=== PATIENT | female | born 1995 | race Caucasian/White ===

== ENCOUNTER 2022-06-08 15:43 | Outpatient (CLI) | payer BC, SELFPAY | END 2022-06-08 15:44 | disposition home or self-care (01) | LOC: NFLDREF 06-12 10:29 | PROVIDERS: PCP Physician Assistant Medical; Referring Provider Physician Assistant Medical; Visit Provider Physician Assistant Medical | DX: Z01.419 Encounter for gynecological examination (general) (routine) without abnormal findings (principal); Z13.6 Encounter for screening for cardiovascular disorders; Z13.29 Encounter for screening for other suspected endocrine disorder | CPT/HCPCS: 80053; 80061; 84443 ==

== ENCOUNTER 2023-10-04 11:46 | Emergency (ER) | payer BC, SELFPAY ==
[2023-10-04 11:53] VITALS: BP 145/93; PULSE 94; RESP 16; TEMP 37.1; O2SAT 99; BMI 27.4
--- NOTE | 2023-10-04 12:18 | CRLHL7_ITS ---
For Patients: As a result of the Cures Act, medical imaging exams and procedure reports are released immediately into your electronic medical record. You may view this report before your referring provider. If you have questions, please contact your health care provider. Indication: .INJURY Technique: Three views right knee. Comparison: None. Findings/Impression: No acute displaced fracture or malalignment. No soft tissue swelling. Joint spaces are maintained. Bony mineralization is age appropriate. Dictated by Brian Bunn MD @ 10/04/2023 12:44:58 PM (Electronically Signed)
--- NOTE | 2023-10-04 12:18 | ED.LOWEXIN ---
HPI - Extremity Injury (Lower) General Chief Complaint: Extremity Pain/Injury, Lower Stated Complaint: right knee injury Time Seen by Provider: 10/04/23 11:56 History of Present Illness HPI Narrative: This 28-year-old female comes in with an injury to her right knee. A couple days ago she attempted to make a little hop over a puddle by a launching with her left leg and landing on her right leg. When she landed she felt a pop and since then has had worsening pain. Since last night she has not been able to bear weight. She has too much pain also to fully extend her right leg. Related Data Previous Rx's ?Medication ?Instructions ?Recorded citalopram 10 mg tablet (Celexa) 10 mg PO QDAY #30 tabs 09/30/23 hydrocodone 5 mg-acetaminophen 325 1 tab PO Q4-6H PRN pain #20 tabs 10/04/23 mg tablet Allergies Allergy/AdvReac Type Severity Reaction Status Date / Time No Known Allergies Allergy Unknown Verified 10/04/23 11:52 Review of Systems Status of ROS: Reports: 10 or more systems reviewed and unremarkable except as noted in History and below Narrative: Constitutional: No fevers, no weight gain or loss. Eyes: No discharge. No vision changes. HENT: No congestion, no sore throat, no ear pain. Cardiovascular: No chest pain, no palpitations. Respiratory: No shortness of breath, no wheezes, no cough. Gastrointestinal: No abdominal pain, no vomiting, no diarrhea. Genitourinary: No dysuria, no hematuria. Musculoskeletal: Right leg injury as described above. Skin: No rashes, no pruritis. Neurological: No dizziness, weakness, sensory change, speech change. Endo/Heme/Allergies: No bruising or bleeding. No polydipsia. Pysch: no suicidality, no anxiety, no insomnia. All other systems reviewed and are negative. [facility] Medical History (Updated 10/04/23 @ 15:52 by Elder Cm MD) Palpitation ?R00.2 - Palpitations (ICD-10) Acute pelvic inflammatory disease (02/2016) ?N73.0 - Acute parametritis and pelvic cellulitis (ICD-10) Family History (Updated 06/05/22 @ 13:56 by Sarina Betancourt) Father Diabetes Social History (Updated 06/05/22 @ 13:56 by Sarina Betancourt) Narrative: Does not drink alcohol Does not use illicit drugs Smoker Smoking Status: Current every day smoker How often do you have a drink containing alcohol: 2-3 times a week AUDIT-C Alcohol total score: 3 Non-prescribed substance use: denies use Little interest or pleasure in doing things: more than half the days Feeling down, depressed, or hopeless: more than half the days Exam Narrative: Exam Narrative: Constitutional: Well-developed, well-nourished, no acute distress. HEENT: Normocephalic, atraumatic. Neck: Normal range of motion. Nontender. Supple. Heart: Regular. No murmurs. Normal rate. Intact distal pulses. Lungs: Clear to auscultation. No chest discomfort. No wheezes, rhonchi, or rales. Abdomen: Normal bowel sounds. Nontender. No rebound tenderness. Genitalia: Deferred. Back: No midline tenderness. Normal range of motion. Extremities: This patient has distinct pain with any kind of movement of her right knee such that I was not able to do a good examination of ligaments. She does appear to have a small effusion. She is unable to fully straighten her leg due to pain. Skin: Intact. No rash. Warm. No erythema or pallor. Neurologic: No altered sensation. No weakness. Alert and oriented. Psychiatric: No suicidality. No anxiety or depression. No insomnia. Nursing notes and vitals signs are reviewed. Const: Vital Signs, click to edit/add: Vital Signs - 24 hr 10/04/23 11:53 Temperature 98.7 F Pulse Rate [Pulse Oximeter] 94 Respiratory Rate 16 Blood Pressure [Ri ght Upper Arm] 145/93 H Pulse Oximetry 99 Course Vital Signs Vital signs: Initial Vital Signs Temperature 98.7 F 10/04/23 11:53 Temperature Source Temporal Artery Scan 10/04/23 11:53 Pulse Rate 94 10/04/23 11:53 Respiratory Rate 16 10/04/23 11:53 Blood Pressure 145/93 H 10/04/23 11:53 Blood Pressure Mean 110 H 10/04/23 11:53 Blood Pressure Position Sitting 10/04/23 11:53 Pulse Oximetry 99 10/04/23 11:53 Vital Signs Temperature 98.7 F 10/04/23 11:53 Pulse Rate 94 10/04/23 11:53 Respiratory Rate 16 10/04/23 11:53 Blood Pressure 145/93 H 10/04/23 11:53 Pulse Oximetry 99 10/04/23 11:53 Temperature 98.7 F 10/04/23 11:53 Pulse Rate 94 10/04/23 11:53 Respiratory Rate 16 10/04/23 11:53 Blood Pressure 145/93 H 10/04/23 11:53 Pulse Oximetry 99 10/04/23 11:53 Medications Administered Medications: Discontinued Medications Generic Name Dose Route Start Last Admin Trade Name Freq PRN Reason Stop Dose Admin Hydrocodone Bitart/Acetaminophen 2 tab 10/04/23 14:26 10/04/23 14:40 Hydrocodone-Acetamin 5-325 Mg 1 Tab PO 10/04/23 14:27 2 tab ONCE ONE Administration MDM - Extremity Injury (Lower) MDM Narrative Medical decision making narrative: This patient comes in with pain in injury to her right knee as described above. X-ray imaging shows no acute findings. The patient is unable to ambulate due to pain and also is not able to fully extend her right knee. I did contact the orthopedic physician's public aid eligibility assistant consumer credit counselor who will make arrangements for a follow-up appointment in clinic in the next day or 2. I was able to arrange MRI imaging of her knee today and results for this test are pending. The patient received crutches and prescription for [place]. Imaging Data XR R Knee: Radiologist's impression: No acute displaced fracture or malalignment. No soft tissue swelling. Joint spaces are maintained. Bony mineralization is age appropriate. Discharge Plan Discharge Clinical Impression: Injury of knee Patient Disposition: Home w/ Parent or Adult Condition: Unchanged Additional Instructions: Use crutches as needed along with pain medicine as prescribed. Follow-up with orthopedic clinic. You should receive phone call as to when and where this can occur. Or you made I will [phone]. Prescriptions: New hydrocodone-acetaminophen 5-325 mg tablet 1 tab PO Q4-6H PRN (Reason: pain) Qty: 20 0RF No Action citalopram [Celexa] 10 mg tablet 10 mg PO QDAY Qty: 30 12RF Rx Instructions: disp cap if cheaper Follow Up/Referrals: Kady Bosch MD [Primary Care Provider] - Stand Alone [facility]: [facility] Info Instructions
--- NOTE | 2023-10-04 14:02 | CRLHL7_ITS ---
For Patients: As a result of the Century Cures Act, medical imaging exams and procedure reports are released immediately into your electronic medical record. You may view this report before your referring provider. If you have questions, please contact your health care provider. INDICATION: Knee pain after fall. COMPARISON: 04 October 2023. TECHNIQUE: Axial T1 and PD fat-sat, sagittal PD and T2 fat-sat and coronal PD and STIR right knee. FINDINGS: Medial compartment: Meniscus: Bucket-handle tear with about half of the meniscus displaced over the medial tibial eminence in the intercondylar notch. Internally extruded flap tear from the nondisplaced posterior horn and posterior body (image 21 series 8). Articular cartilage: Uniform and well maintained signal and thickness. MCL: Intact. Cruciate ligaments: ACL: Somewhat edematous indistinct proximal ligament which is mildly attenuated suggesting partial tearing. PCL: Intact. Lateral compartment: Meniscus: Intact. Articular cartilage: Uniform. Lateral collateral complex: Intact. Patellofemoral compartment: Uniform and well-maintained articular cartilage thickness and signal. Extensor mechanism: Distal quadriceps tendon and patellar tendon are intact with anatomic patellar alignment. Bones and soft tissues: Moderate size joint effusion. No intra-articular body or significant synovitis. No fracture or bone lesion. Posterior periarticular soft tissues are normal. IMPRESSION: 1. Complex bucket-handle medial meniscal tear. 2. Possibly chronic partial tear proximal ACL. 3. Moderate-sized bland appearing knee joint effusion. Dictated by Josiah Ye MD @ 10/04/2023 4:30:59 PM (Electronically Signed)
[2023-10-04] MEDS: HYDROCODONE-ACETAMIN 5-325 MG 1 TAB 2 TAB PO (14:40)
== END 2023-10-04 16:20 | disposition home or self-care (01) ==
PROVIDERS: Emergency Provider Emergency Medicine Emergency Medical Services; PCP Family Medicine
DX: M25.561 Pain in right knee (principal); X50.1XXA Overexertion from prolonged static or awkward postures, initial encounter
CPT/HCPCS: 73562; 73721; 99284; A9270

== ENCOUNTER 2023-10-15 06:05 | Day surgery (SDC) | payer BC, SELFPAY ==
[2023-10-15] VITALS (17 sets, daily range): BP systolic 101–166; BP diastolic 53–134; PULSE 56–110; RESP 16–21; TEMP 36.3–37.3; O2SAT 92–100; BMI 30.9
--- OUTSIDE RECORDS SUMMARY | 2023-10-15 06:07 | XMS_ITS | Encounter Summary ---
Author Organization [place] Address [address] [place] [id number] Care Team Providers Care Pediatric Speech Therapist Name Role Phone No Ref-Primary, Physician Primary Care Provider Louis Shin MD Unavailable [phone] Reason for Referral * Other (Routine) - Closed Specialty Diagnoses / Procedures Referred By Contac t Referred To Contact Diagnoses Supervision of other normal , antepartum Ri Third Grade Teacher [address] [place] [address] MATER[facility]- [facility] [address], [address] [place] [address] Referral ID Status Reason Start Date Expiration Date Visits Re quested Visits Authorized [id number] Closed 09/07/2019 09/06/2020 1 1 Question Answer [facility] WILLIAM 01/24/2020 Ultrasound Comprehensive US (>than 18 weeks GA) US PROC NONE [facility] Issue OTHER (enter details in Comments) - echogenic intracardiac focus in the left ventricle. LVOT and RVOT inadequately visualized fax [phone] Comments There is no height or weight on file to calculate BMI. >> Patient may proceed with recommendations for further testing as directed by the Maternal Medicine Specialist >> >> If requesting Echo: MFM will determine appropriate location for exam due to indication. >> If requesting Lung Maturity Amnio: If results indicate lung maturity, induction or C/S is recommended within 36 hours. Please schedule accordingly. Please be aware that coverage of these services is subject to the terms and limitations of your health insurance plan. Call member services at your health plan with any benefit or coverage questions. Please bring the following to your appointment: >> Any x-rays, CTs or MRIs which have been performed. Contact the facility where they were done to arrange for warp picker prior to your scheduled appointment. Any new CT, MRI or other procedures ordered by your specialist must be performed at a [facility] or coordinated by your clinic's referral office. >> List of current medications >> This referral request >> Any documents/labs given to you for this referral Encounter Details Date Type Department Care Team (Late st Contact Info) Description 09/07/2019 Orders Only [facility] [address] [place] [id number] Fatoumata Layton, RN Supervision of other normal , antepartum (Primary Dx) Social History Tobacco Use Types Packs/Day Years Used Date Smoking Tobacco: Former Cigarettes Q uit: 12/13/2012 Smokeless Tobacco: Never Alcohol Use Standard Drinks/Week Comments No 0 (1 standard drink = 0.6 oz pur e alcohol) Comments Yes Sex and Gender Information Value Date Recorded Sex Assigned at Not on file Gender Identity Not on file Sexual Orientation Not on file COVID-19 Exposure Response Date Recorded In the last month, have you been in contact with someone who was confirmed or suspected to have Coronavirus / COVID-19? No / Unsure 09/07/2019 9:23 AM CDT documented as of this encounter Plan of Treatment Scheduled Referrals Name Type Priority Associated Diagnoses Orde r Schedule MAT MED CTR REFERRAL- Referral Routine Supervision of other normal , antepartum Ordered: 09/07/2019 documented as of this encounter Visit Diagnoses Diagnosis Supervision of other normal , antepartum- Primary documented in this encounter Additional Health Concerns Assessment Noted Time PHQ-9 Depression Total Score: 9 11/17/19 18 7:16 AM CDT documented as of this encounter Care Teams Pediatric Speech Therapist Relationship Specialty Start Date End Date No Ref-Primary, Physician PCP - General 03/19/17 Louis Shin MD [address] [place] [address] Assigned OBGYN Provider 01/26/20 2 documented as of this encounter
--- OUTSIDE RECORDS SUMMARY | 2023-10-15 06:07 | XMS_ITS | Encounter Summary ---
Author Organization [facility] Address [address] [place] [address]. [place] [address] Care Team Providers Care Social Media Specialist Name Role Phone Fauzia Cormier MD Primary Care Provider [phone] Gemma Cisneros Primary Care Provider [phone] No Ref-Primary, Physician Primary Care Provider Louis Shin MD Unavailable + [phone] Encounter Details Date Type Department Care Team (Late st Contact Info) Description 08/15/2013 Telephone [facility] [address] [address] Gisele Wheeler MA [address] [address] Social History Tobacco Use Types Packs/Day Years Used Date Smoking Tobacco: Former Cigarettes Q uit: 12/13/2012 Smokeless Tobacco: Never Alcohol Use Standard Drinks/Week Comments Yes 0 (1 standard drink = 0.6 oz pur e alcohol) 7 months ago Sex and Gender Information Value Date Recorded Sex Assigned at Not on file Gender Identity Not on file Sexual Orientation Not on file documented as of this encounter Plan of Treatment Not on file documented as of this encounter Visit Diagnoses Not on filedocumented in this encounter Care Teams Social Media Specialist Relationship Specialty Start Date End Date Fauzia Cormier MD PCP - General Family Practice 12/02/12 02/18/16 [facility] [address] [facility] [place] [address] PCP - General Physician [employer] 02/19/16 03/18/17 No Ref-Primary, Physician PCP - General 03/19/17 [facility] [address] [facility] [address] Assigned OBGYN Provider 01/26/20 4 2 documented as of this encounter
--- OUTSIDE RECORDS SUMMARY | 2023-10-15 06:07 | XMS_ITS | Encounter Summary ---
Author Organization [place] Address [address] [place] [address]. [place] [address] Care Team Providers Care Retort Loader Name Role Phone Fauzia Cormier MD Primary Care Provider [phone] Gemma Cisneros Primary Care Provider [phone] No Ref-Primary, Physician Primary Care Provider Louis Shin MD Unavailable + [phone] Encounter Details Date Type Department Care Team (Late st Contact Info) Description 08/17/2013 Telephone [facility] [address] [address] Gisele Wheeler MA [address] [address] Social History Tobacco Use Types Packs/Day Years [...] on filedocumented in this encounter Care Teams Retort Loader Relationship Specialty Start Date End Date Fauzia Cormier MD PCP - General Family Practice 12/02/12 02/18/16 AmeliaJuly [facility] [address] [facility] [place] [address] PCP - General Physician Regional Tele[employer] Specialist 02/19/16 03/18/17 No Ref-Primary, Physician PCP - General 03/19/17 [facility] [address] [facility] [address] Assigned OBGYN Provider 01/26/20 4 2 documented as of this encounter
--- OUTSIDE RECORDS SUMMARY | 2023-10-15 06:07 | XMS_ITS | Referral Summary ---
Author Organization [place] Address [address] [place] [address] Care Team Providers Care Audit Partner Name Role Phone No Ref-Primary, Physician Primary Care Provider Allergies No known active allergies Medications Medication Sig Dispensed Refills Start Date End Date Status Vit-Fe Fumarate-FA ( MULTIVITAMIN PLUS IRON) 27-0.8 MG TABS per tablet Take 1 tablet by mouth daily 100 tablet 3 07/29/2017 Active FLUoxetine (PROZAC) 40 MG capsule Take 40 mg by mouth daily Active acetaminophen (TYLENOL) 325 MG tabletIndications:Vag inal delivery Take 2 tablets (650 mg) by mouth every 4 hours as needed for mild pain or fever (greater than or equal to 38?? C /100.4?? F (oral) or 38.5?? C/ 101.4?? F (core).) 01/17/2020 Active ibuprofen (ADVIL/MOTRIN) 800 MG tabletIndications:Vag inal delivery Take 1 tablet (800 mg) by mouth every 6 hours as needed for other (cramping) 01/17/2020 Active hydrOXYzine (ATARAX) 25 MG tablet Take 1-2 tablets (25-50 mg) by mouth every 6 hours as needed for other (muscle spasm) 30 tablet 12/26/2021 Active Active Problems Problem Noted Date Diagnosed Date Vaginal delivery 01/16/2020 Encounter for triage in patient 020 Indication for care in labor or delivery 018 Indication for care or intervention in labor or delivery 09/30/2017 care, subsequent 09/01/2017 care, first 08/09/2017 Substance abuse 08/09/2017 Mental and behavioral problem 12/02/2012 Overview: Diagnosis updated by automated process. Provider to review and confirm. Mental health problem 10/25/2012 Major depressive disorder, single episode, moder ate 03/16/2011 Immunizations Name Administration Dates Next Due DTAP (<7y) 11/14/2002, 9,1997,1997,1997 Flu, Unspecified 05/20/2006 HIB, Unspecified 07/04/1998, 8,1997,1997 HPV Quadrivalent 11/29/2009,11/24/2006, 7 HepB, Unspecified 01/08/1998,1997,05/25/18 98 Influenza (H1N1) 03/01/2009 Influenza (IIV3) PF 01/31/2009,03/12/2008 Influenza Vaccine >6 months,quad, PF 02/01/2015 MMR 11/29/2009,11/14/2002,07/04/1998 Meningococcal ACWY (Menveo??) 11/12/2016 Polio, Unspecified 07/04/1998,1997, 998 Poliovirus, inactivated (IPV) 11/14/2002 TDAP Vaccine (Adacel) 11/13/2019,08/23/2017,11/04 Td (Adult), Adsorbed 11/12/2016 Varicella 11/29/2009,07/04/1998 Social History Tobacco Use Types Packs/Day Years Used Date Smoking Tobacco: Former Cigarettes Q uit: 12/13/2012 Smokeless Tobacco: Never Tobacco Cessation:Counseling Given: No Alcohol Use Standard Drinks/Week Comments No 0 (1 standard drink = 0.6 oz pur e alcohol) Admire Depression Scale Answer Date Recorded Admire Depression Score 2 01/17/2020 Last EPDS Self Harm Result Not on file 01/16 Adolescent Education Answer Date Record ed Getting School Help Needed Not on file 01/09 Sex and Gender Information Value Date Recorded Sex Assigned at Not on file Gender Identity Not on file Sexual Orientation Not on file Last Filed Vital Signs Vital Sign Reading Time Taken Comments Blood Pressure 131/94 12/26/2021 10:05 AM CDT Pulse 77 12/26/2021 10:05 AM CDT Temperature 35.9 ??C (96.7 ??F) 12/26/2021 10:05 AM C DT Respiratory Rate 16 12/26/2021 10:05 AM CDT Oxygen Saturation 99% 12/26/2021 10:05 AM CDT Inhaled Oxygen Concentration - - Weight 97.5 kg (215 lb) 01/16/2020 9:15 AM CDT Height 172.7 cm (5' 8) 01/16/2020 9:15 AM CDT Body Mass Index 32.69 01/16/2020 9:15 AM CDT Plan of Treatment Not on file Procedures Procedure Name Priority Date/Time Associated Diagnosis Comments PAP IMAGED THIN LAYER SCREEN Routine 06/26/2019 3:21 PM CDT Supervision of other normal , antepartum CHLAMYDIA TRACHOMATIS PCR Routine 06/26/2019 3:21 PM CDT Supervision of other normal , antepartum HIV ANTIGEN ANTIBODY COMBO Routine 06/14/2019 9:11 AM CDT care, subsequent , unspecified trimester from Last 3 Months or Most Recently Relevant to Health Maintenance Results * PAP imaged thin layer screen (06/26/2019 3:21 PM CDT) PAP DAT Reed Report Patient Name: JANICE GARCIA MR#: [id number] Specimen #: [id number] Collected: 06/26/2019 Received: 06/27/2019 Reported: 06/28/2019 12:37 Ordering Phy(s): MARISOL CEJA For improved result formatting, select 'View Enhanced Report Format' under Linked Documents section. SPECIMEN/STAIN PROCESS: Pap imaged thin layer prep screening (Surepath, FocalPoint with guided screening) ? Pap-Cyto x 1 SOURCE: Cervical, endocervical Pap imaged thin layer prep screening (Surepath, FocalPoint with guided screening) SPECIMEN ADEQUACY: Satisfactory for evaluation. -Transformation zone component present. CYTOLOGIC INTERPRETATION: Negative for intraepithelial lesion or malignancy Electronically signed out by: VICENTE Oneill (ASCP) CLINICAL HISTORY: LMP: 03/31/19 , Papanicolaou Test Limitations: ??Cervical cytology is a screening test with limited sensitivity; regular screening is critical for cancer prevention; Pap tests are primarily effective for the diagnosis/preventi on of squamous cell carcinoma, not adenocarcinomas or other cancers. COLLECTION SITE: Client: ??[facility] Location: [facility] (R) The technical component of this testing was completed at the [facility], with the professional component performed at the [facility], [address] [place] [phone] ([phone]) COPATH Cytologic material (specimen) 06/26/2019 3:21 PM CDT 06/27/2019 8:31 AM CDT Marisol Ceja MD LAB - [facility] L SPECIMEN COPATH * Chlamydia trachomatis PCR (06/26/2019 3:21 PM CDT) Specimen Description Cervix 06/26/2019 3:45 PM CDT [facility] Chlamydia Trachomatis PCR Negative NEG^Negat lon 06/27/2019 1:00 PM CDT [facility] Comment: Negative for C. trachomatis rRNA by tele grout sewer line repairer mediated amplification. A negative result by tele grout sewer line repairer mediated amplification does not preclude the presence of C. trachomatis infection because results are dependent on proper and adequate collection, absence of inhibitors, and sufficient rRNA to be detected. Specimen from uterine cervix (specimen) 06/26/2019 3:21 PM CDT 06/26/2019 3:44 PM CDT Marisol Ceja MD LAB - MICRO GENERAL ORDERABLES [facility] [address] [place] [address], [facility] [address] [facility] [address] [place] [address] * HIV Antigen Antibody Combo (06/14/2019 9:11 AM CDT) HIV Antigen Antibody Combo Nonreactive NR^Nonrea ctive 06/15/2019 12:19 PM CDT [facility] Comment:HIV-1 p24 Ag & HIV-1 /HIV-2 Ab Not Detected Blood specimen (specimen) 06/14/2019 9:11 AM CDT 06/14/2019 9:12 AM CDT Marisol Ceja MD LAB - BLOOD ORDERABL ES [facility] [address] [place] [address] from Last 3 Months or Most Recently Relevant to Health Maintenance Advance Directives For more information, please contact: [phone] * Full Code (Latest Code Status on File) Date Activated Date Inactivated Comments 12/02/2012 3:34 PM 12/13/2012 9:47 AM * Full Code Date Activated Date Inactivated Comments 10/25/2012 4:11 PM 11/02/2012 4:53 PM Care Teams Audit Partner Relationship Specialty Start Date End Date No Ref-Primary, Physician PCP - General 03/19/17
--- OUTSIDE RECORDS SUMMARY | 2023-10-15 06:07 | XMS_ITS | Encounter Summary ---
Author Organization [place] Address [address] [place] [address]. [place] [address] Care Team Providers Care Cardiology Associate Name Role Phone Fauzia Cormier MD Primary Care Provider [phone] Gemma Cisneros Primary Care Provider [phone] No Ref-Primary, Physician Primary Care Provider Louis Shin MD Unavailable + [phone] Encounter Details Date Type Department Care Team (Late st Contact Info) Description 08/16/2013 Telephone [facility] [address] [address] Gisele Wheeler MA [address] [id number] Social History Tobacco Use Types Packs/Day Years [...] on file documented as of this encounter Miscellaneous Notes * Telephone Encounter - Gisele Wheeler MA - 08/16/2013 3:48 PM CDT Rec msg from pt's SW. Stated that pt is to do online school through [employer] until end of year, and that Filipe Walker is the school contact. Stated that pt had services for 90 days, and now mgmt is being transferred to family assessment due to CPS report. Stated she is available in the future to work with pt. documented in this encounter Plan of Treatment Not on file documented as of this encounter Visit Diagnoses Not on filedocumented in this encounter Care Teams Cardiology Associate Relationship Specialty Start Date End Date Fauzia Cormier MD PCP - General Family Practice 12/02/12 02/18/16 AmeliaJuly [facility] [address] [facility] [place], [place] [id number] PCP - General Physician Insurance Salesman 02/19/16 03/18/17 No Ref-Primary, Physician PCP - General 03/19/17 Louis Shin MD [address] [place] [address] Assigned OBGYN Provider 01/26/20 2 documented as of this encounter
--- OUTSIDE RECORDS SUMMARY | 2023-10-15 06:07 | XMS_ITS | Clinical Summary ---
Author Organization [place] Address [address] [place] [address] Care Team Providers Care Foot Orthopedist Name Role Phone No Ref-Primary, Physician Primary [...] 11/13/2019,08/23/2017,11/04 Td (Adult), Adsorbed 11/12/2016 Varicella 11/29/2009,07/04/1998 Family History Medical History Relation Comments Depression Father Diabetes Father Anxiety Disorder Maternal Grandmother Relation Status Comments Father Alive Maternal Grandmother Alive Mother Alive Social History Tobacco Use Types Packs/Day Years Used Date Smoking Tobacco: Former Cigarettes Q uit: 12/13/2012 Smokeless Tobacco: Never Tobacco Cessation:Counseling Given: No Alcohol Use Standard Drinks/Week Comments No 0 (1 standard drink = 0.6 oz pur e alcohol) [place] Depression Scale Answer Date Recorded [place] Depression Score 2 01/17/2020 Last EPDS Self [...] 01/16/2020 9:15 AM CDT Plan of Treatment Health Maintenance Due Date Last Done Comments ADVANCE CARE PLANNING 1997 ANNUAL REVIEW OF HM ORDERS 1997 DEPRESSION ACTION PLAN 1997 YEARLY PREVENTIVE VISIT 1997 HEPATITIS C SCREENING 2015 PHQ-9 05/18/2018 11/15/2017 PAP 06/25/2022 06/26/2019, 06/26/2019 COVID-19 Vaccine ( season) 2022 INFLUENZA VACCINE (#1) 2023 5, 03/01/2009, 01/31/2009, Additional history exists DTAP/TDAP/TD IMMUNIZATION (10 - Td or Tdap) 11/12/2029 11/13/2019, 08/23/2017, 11/12/2016, Additional history exists HEPATITIS B IMMUNIZATION Completed 998, 1997, 1997 IPV IMMUNIZATION Completed 11/14/2002, 04/1998, 1997, Additional history exists HPV IMMUNIZATION Completed 11/29/2009, , 07/22/2006 MENINGITIS IMMUNIZATION Aged Out 11/12/2016 No l onger eligible based on patient's age to complete this topic HIV SCREENING Completed 06/14/2019, 02/03, 08/17/2013 CHLAMYDIA SCREENING Discontinued 06/26/2019, 06/26/2019, 06/26/2019, Additional history exists Pneumococcal Vaccine: Pediatrics (0 to 5 Years) and At-Risk Patients (6 to 64 Years) Aged Out No longer eligible based on patient's age to complete this topic RSV MONOCLONAL ANTIBODY Aged Out No l onger eligible based on patient's age to complete this topic Procedures Procedure Name Priority Date/Time Associated Diagnosis [...] Reed Report Patient Name: JANICE GARCIA MR#: [id number] Specimen #: [id number] Collected: 06/26/2019 Received: 06/27/2019 Reported: 06/28/2019 12:37 [...] malignancy Electronically signed out by: VICENTE Oneill (ASC) CLINICAL HISTORY: LMP: 03/31/19 , Papanicolaou Test Limitations: ??Cervical cytology is a screening test with limited sensitivity; regular screening is critical for cancer prevention; Pap tests are primarily effective for the diagnosis/preventi on of squamous cell carcinoma, not adenocarcinomas or other cancers. COLLECTION SITE: Client: ??[facility] Location: [facility] (R) The technical component of this testing was completed at the [facility], with the professional component performed at the [facility], [address] [place] [address] ([phone]) COPATH Cytologic material (specimen) 06/26/2019 3:21 PM CDT 06/27/2019 8:31 AM CDT Marisol Ceja MD LAB - OPTIME CLINICA L SPECIMEN Performing Organization Address City/[facility] Co de Phone Number COPATH * Chlamydia trachomatis PCR (06/26/2019 3:21 PM CDT) Specimen Description Cervix 06/26/2019 3:45 PM CDT [facility] Chlamydia Trachomatis PCR Negative NEG^Negat lon 06/27/2019 1:00 PM CDT [facility] Comment: Negative for C. trachomatis rRNA by plastic joint maker mediated amplification. A negative result by plastic joint maker mediated amplification does not preclude the presence of C. trachomatis infection because results are dependent on proper and adequate collection, absence of inhibitors, and sufficient rRNA to be detected. Specimen from uterine cervix (specimen) 06/26/2019 3:21 PM CDT 06/26/2019 3:44 PM CDT Marisol Ceja MD LAB - MICRO GENERAL ORDERABLES Performing Organization Address City/[facility]/ZIP Co de Phone Number [facility] [address] [place] [address], [facility] [address] [facility] [address] [place], [place] [id number] * HIV Antigen Antibody Combo (06/14/2019 9:11 AM CDT) HIV Antigen Antibody Combo Nonreactive NR^Nonrea ctive 06/15/2019 12:19 PM CDT [facility] Comment:HIV-1 p24 Ag & HIV-1 /HIV-2 Ab Not Detected Blood specimen (specimen) 06/14/2019 9:11 AM CDT 06/14/2019 9:12 AM CDT Marisol Ceja MD LAB - BLOOD ORDERABL ES [facility] [address] [place] [address] from Last 3 Months or Most Recently Relevant to Health Maintenance Advance Directives For more information, please contact: [phone] * Full Code (Latest Code Status on File) Date Activated Date Inactivated Comments 12/02/2012 3:34 PM 12/13/2012 9:47 AM * Full Code Date Activated Date Inactivated Comments 10/25/2012 4:11 PM 11/02/2012 4:53 PM Care Teams Foot Orthopedist Relationship Specialty Start Date End Date No Ref-Primary, Physician PCP - General 03/19/17
--- OUTSIDE RECORDS SUMMARY | 2023-10-15 06:07 | XMS_ITS | Encounter Summary ---
Author Organization [place] Address [address] [place] [address] Care Team Providers Care Casting Carrier Name Role Phone No Ref-Primary, Physician Primary Care Provider Louis Shin MD Unavailable +- [phone] Encounter Details Date Type Department Care Team (Late st Contact Info) Description 08/14/2019 [facility] [address] [place] [address] Walter Sykes Social History Tobacco Use Types Packs/Day Years [...] Diagnoses Not on filedocumented in this encounter Additional Health Concerns Assessment Noted Time PHQ-9 Depression Total Score: 9 11/17/19 18 7:16 AM CDT documented as of this encounter Care Teams Casting Carrier Relationship Specialty Start Date End Date No Ref-Primary, Physician PCP - General 03/19/17 Lousi Shin MD [address] [place] [address] Assigned OBGYN Provider 01/26/20 2 documented as of this encounter
--- OUTSIDE RECORDS SUMMARY | 2023-10-15 06:08 | XMS_ITS | Encounter Summary ---
Author Organization [place] Address [address] [place] [address]. [place] [address] Care Team Providers Care Event Designer Name Role Phone Fauzia Cormier MD Primary Care Provider [phone] Gemma Cisneros Primary Care Provider [phone] No Ref-Primary, Physician Primary Care Provider Louis Shin MD Unavailable + [phone] Encounter Details Date Type Department Care Team (Late st Contact Info) Description 07/03/2013 Telephone [facility] Mental Health & Addiction Services [address] [address] Gisele Wheeler MA [address] [address] Social History Tobacco Use Types Packs/Day Years [...] Telephone Encounter - Gisele Wheeler MA - 07/03/2013 10:21 AM CDT Phone call to pt's mother informing that pt arrived to program today with no problems. Fam session scheduled for 07/13 at 2:30pm. documented in this encounter Plan of Treatment Not on file documented as of this encounter Visit Diagnoses Not on filedocumented in this encounter Care Teams Event Designer Relationship Specialty Start Date End Date Fauzia Cormier MD PCP - General Family Practice 12/02/12 02/18/[address] [facility] [place] [id number] PCP - General Physician Dumper 02/19/16 03/18/17 No Ref-Primary, Physician PCP - General 03/19/17 Louis Shin MD [address] [place] [address] Assigned OBGYN Provider 01/26/20 2 documented as of this encounter
--- OUTSIDE RECORDS SUMMARY | 2023-10-15 06:08 | XMS_ITS | Encounter Summary ---
Author Organization [facility] Address [address] [place] [address] Care Team Providers Care Frame Expander Name Role Phone Fauzia Cormier MD Primary Care Provider + [phone] AmeliaJuly Primary Care Provider [phone] No Ref-Primary, Physician Primary Care Provider Louis Shin MD Unavailable + [phone] Reason for Visit * Reason Onset Date Comments Outpatient 06/21/2013 dual Other Encounter Details Date Type Department Care Team ([facility] st Contact Info) Description 06/21/2013 Telephone [facility] Intake [address] [place] [address] Generic, Behavioral IntakeMD Outpatient (dual ); Social History Tobacco Use Types Packs/Day Years Used Date Smoking Tobacco: Never Alcohol Use Standard Drinks/Week Comments No 0 (1 standard drink = 0.6 oz pur e alcohol) Sex and Gender Information Value Date Recorded Sex Assigned at Not on file Gender Identity Not on file Sexual Orientation Not on file documented as of this encounter Miscellaneous Notes * Telephone Encounter - Adriane Trujillo - 07/14/2013 8:52 AM CDT 07-14-13 recv'd 14 page clinical from [facility], same as the other. Recycled it. fb * Telephone Encounter - Gisele Currie - 07/10/2013 3:51 PM CDT Received d/c info from [facility]. [facility] to [facility]. * Telephone Encounter - Paul Allan - 06/28/2013 9:21 AM CDT Message copied by PAUL ALLAN on WedJun 28, 2013 9:21 AM ------ Message from: FARZAD GIVENS Created: WedJun 28, 2013 9:14 AM Plan to start on Wednesday in dual diagnosis program with Dr Jeffrey to follow. Pat * Telephone Encounter - Benito Rick - 06/27/2013 9:20 AM CDT 06/27/2013 Received clinical from [facility]. Faxed to [facility] for review. JT * Telephone Encounter - Camilla Hung - 06/22/2013 10:31 AM CDT Message copied by CAMILLA HUNG on WedJun 22, 2013 10:31 AM ------ Message from: FARZAD GIVENS Created: WedJun 22, 2013 10:20 AM Intake scheduled for Monday 06/26 @ 1000 for dual diagnosis program. Pat * Telephone Encounter - José Miguel Lopez - 06/21/2013 10:11 AM CDT Rcvd call from Pt's mom (Kristin ) seeking Dual mpls Pt has been @ [facility] past 6 mos Admitted due to PTSD and dep Med's inc Prozac Seroquel and trazodone Therapist @ [facility] ph# also Recommending dual Pt use hx etoh,THC and meth [facility] will send add clinical documented in this encounter Plan of Treatment Not on file documented as of this encounter Visit Diagnoses Not on filedocumented in this encounter Care Teams Frame Expander Relationship Specialty Start Date End Date Fauzia Cormier MD PCP - General Family Practice 12/02/12 02/18/16 AmeliaJuly [facility] [address] [facility] [address] [facility] [place] [id number] PCP - General Physician Dairy Cattle Farmer 02/19/16 03/18/17 No Ref-Primary, Physician PCP - General 03/19/17 Louis Shin MD [address] [place] [address] Assigned OBGYN Provider 01/26/20 2 documented as of this encounter
--- OUTSIDE RECORDS SUMMARY | 2023-10-15 06:08 | XMS_ITS | Encounter Summary ---
Author Organization [place] Address [address] [place] [address]. [place] [address] Care Team Providers Care Dental Technology Advisor Name Role Phone Fauzia Cormier MD Primary Care Provider + [phone] Gemma Cisneros Primary Care Provider [phone] No Ref-Primary, Physician Primary Care Provider Louis Shin MD Unavailable + [phone] Encounter Details Date Type Department Care Team (Late st Contact Info) Description 07/31/2013 Telephone [facility] Mental Health & Addiction Services [address] [address] Gisele Wheeler MA [address] [phone] Social History Tobacco Use Types Packs/Day Years [...] on filedocumented in this encounter Care Teams Dental Technology Advisor Relationship Specialty Start Date End Date Fauzia Cormier MD PCP - General Family Practice 12/02/12 02/18/16 AmeliaJuly [facility] [address] [facility] [place] [address] PCP - General Physician Feather Maker 02/19/16 03/18/17 No Ref-Primary, Physician PCP - General 03/19/17 [facility] Shin MD [address] [facility] [address] Assigned OBGYN Provider 01/26/20 4 2 documented as of this encounter
--- OUTSIDE RECORDS SUMMARY | 2023-10-15 06:08 | XMS_ITS | Encounter Summary ---
Author Organization [place] Address [address] [place] [id number] Care Team Providers Care Gravity Meter Observer Name Role Phone Fauzia Cormier MD Primary Care Provider [phone] AmeliaJuly Primary Care Provider [phone] Ref-Primary, Physician Primary Care Provider Louis Shin MD Unavailable + [phone] Encounter Details Date Type Department Care Team (Late st Contact Info) Description 07/03/2013 [facility] Treatment Plan [facility] Mental Health & Addiction Services [address] [address] César Steward MD [address] [id number] Screen for STD (sexually transmitted disease) (Primary Dx) Social History Tobacco Use Types [...] on file documented as of this encounter Patient Instructions * Patient Instructions* Gisele Wheeler MA - 08/21/2013 2:28 PM CDT Images from the original note were not included. Child and Adolescent Outpatient Discharge Instructions Name: Janice Garcia : 1995 Discharge Date: 08/18/13 Main Diagnosis: DSM IV Diagnosis: [place] I: Major depressive disorder; generalized anxiety disorder; oppositional defiant disorder; marijuana dependency; alcohol and stimulant abuse [place] II: Cluster B traits [place] III: none [place] IV: moderate psychosocial stressors [place] V: Global Assessment of Functionin Major Treatments, Procedures and Findings: Presenting Problem: Janice Garcia is a 17-year-old female with a past psychiatric history of depression, self-injurious behaviors, suicide attempt and use of marijuana, alcohol and methamphetamines. She presented to the [facility] as astep down from residential treatment. Treatment goals while in the program, progress on these goals and effective treatment strategies: Janice has made significant progress over the last 6 months. At time of discharge, she was almost 9 months sober, and very committed to sobriety. She has made excellent gains in managing her mood. Janice still needs to improve her anger responses, as she continues to have a quick flip to anger when triggered. She has made good progress in calming quickly and processing after anger incidents. Mental Health Goals: 1) Patient to identify at least 5 effective coping skills to manage emotions, manage depressive andanxious symptoms, and improve functioning. Patient to rate overall functioning weekly on a 10 pointscale (1=poor functioning, disengaged, infective coping & 10=excellent functioning, engaged, bright, effective coping). Janice identified DBT skills such a ride the wave and lemonaid as useful coping skills. She also identified taking breaks, talking to someone, distraction activities as coping skills. Janice rated her functioning at a 7 at admission. She improved to an 8.5 prior to discharge, although at discharged rated herself a 6.5 due to situational concerns. 2) Patient's parent to rate patient functioning on above 1-10 scale weekly to assess progress in patient's capacity to manage symptoms & mood. Janice's parents rated her a 7 at admission, and improved their rating to a 9 prior to discharge. At discharge they rated her a 6, due to situational concerns. 3) Patient will not engage in self-injurious behaviors for at least 2 weeks prior to discharge as evidenced by patient and/or parent report, and will identify the coping skills being used to prevent this regression. Janice had no self-injurious behaviors ay any time while she was in program, nor did she have any urges for self-injurious behaviors. 4) Patient will report any suicidal ideation, and will identify the coping skills being used to prevent this regression. Patient will have a remission of suicidal ideation for at least two weeks prior to discharge as evidenced by patient and/or parent report. Janice had no suicidal ideation during her time in program. Janice did a nice job of processing and dealing with difficult situations in healthy ways during program, without resorting to suicidal ideation or self-injurious behaviors. Substance Abuse/Dependence Goals: 1) Patient to follow Home Engagement Contract and Stages Contract under the guidelines of the [place] [facility] program, with any changes to be discussed with parent prior to discharge. Janice followed the Home Engagement Contract during her time in the program, earning Stage III (out of IV stages) prior to her discharge. 2) Patient will cooperate with random urine analysis (UA). UA's will be negative per program expectations to assure sobriety during treatment. Positive UA may result in inpatient hospitalization. Janice was cooperative with UA's during her treatment, all of which were clean. 3) Patient will access sober friends that are approved by parents and will not spend time with former friends who used chemicals. Janice did not spend time with using friends during her treatment. There was an incident where some using friends were out where she was with family, and she successfully handled the situation by telling thewm she was sober and not interested in seeing them. 4) Patient will attend community Alcoholics or Narcotics Anonymous (AA/NA) meetings or agreed upon community support program at least two times per week, and access AA/NA sponsor or mentor as part ofpre-discharge plan. Janice initially struggled to get to Alcoholics Anonymous meetings. Initially, she felt she did not need supports for sobriety. With continued encouragement, and finding a women's meetings, Janice found Alcoholics Anonymous to be a great support. She obtained her sponsor, Kathleen, prior to discharge, and was in regular contact with her. Continuing concerns: Family conflict, history of alcohol use in the home, potential for relapse, potential for failure to attend Alcoholics Anonymous, potential for failure to follow up with therapy and psychiatry. Current Outpatient Prescriptions Medication Sig ??? QUEtiapine (SEROQUEL) 100 MG tablet Take 1 tablet (100 mg) by mouth At Bedtime ??? FLUoxetine (PROZAC) 20 MG capsule Take 60 mg by mouth daily ??? traZODone (DESYREL) 100 MG tablet Take 1 tablet by mouth At Bedtime. ??? norgestim-eth estrad triphasic (ORTHO TRI-CYCLEN, TRI-SPRINTEC) 0.18/0.215/0.25 MG-35 MCG TABS tablet Take 1 tablet by mouth daily. No current facility-administered medications for this visit. Notes: ?? Take all medicines as directed. Make no changes unless your doctor suggests them. ?? Go to all your doctor visits. Be sure to have all your required lab tests. This way, your medicines can be refilled. ?? Do not use any drugs not prescribed by your doctor. Avoid alcohol. Special Care Needs: ?? If you experience any of the following symptom(s), increased confusion, mood getting worse, feeling more aggressive, losing more sleep, thoughts of suicide and substance use report them to your doctor or therapist at: Juan [facility], . ?? Adjust your lifestyle so you get enough sleep, relaxation, exercise and nutrition. Psychiatry Follow-up Discharge plans: Psychiatric medication management Individual and group Dialectical Behavior Therapy (DBT) Family Therapy Chemical Dependency Aftercare Psychiatrist / [facility]rapist: [facility] . [facility] delinquency prevention social worker: Anton Sawant, Resources [facility] Crisis: [facility] Mental Health Crisis: [phone] Crisis Intervention: 454.842.7467 or [phone] (TTY: 216.341.10789); call anytime for help National [employer] on Mental Illness (www.mn.murali.org): 336-489-2863 or 764-108-4330 [place] Association of Children's Mental Health (www.mac.org): 505.188.8550 Alcoholics Anonymous (www.alcoholics-anonymous.org): Check your phone book for your local chapter Suicide Awareness Voices of Education (SAVE) (www.save.org): 611-520-RESO [2792] National Suicide Prevention Line (www.mentalHeirloom Computingmn.org): 900-383-EMSS [7292] Mental Health Consumer / Survivor Network of [place] (www.mhcsn.net): 528.371.9288 or 251-078-9291 Mental Health Association of [place] (www.mentalhealth.org): 136.554.9830 or 903-373-9235 Provider Information Discharged from: [facility]. Unit: [address] [place] [address] Method of discharge: Ambulatory Discharged to: Home Discharge teachings: Patient / family understands purpose / diagnosis for this admission and what treatment consisted of., Patient / family can identify whom to call for questions after discharge., Patient / family can identify potential community resources after discharge., Patient / family states reasons for or demonstrates ability to manage medications and side effects., Patient / family understands how to care for self (i.e., pain management, diet change, activity) or who will be responsible for their care upondischarge., Patient / family is aware of drug / food interactions for prescribed medication., Patient / family is aware of adverse side effects of medication and when to contact the doctor. and Patient / family knows who / where to go for medication refills. Valuables: Have been returned to the patient. Medications: Have been returned to the patient. Discharge Signatures: Patient / Family Member Program [employer] Gisele Wheeler MA, [facility], Psychotherapist Discharge Nurse: Beba Banks RN Date: 08/22/13 Time: 929 Discharging Physician Signature: Date: Time: Discharging Physician Name (printed) Dr. César Steward Resident responsible for dictation (if applicable) documented in this encounter Plan of Treatment Scheduled Orders Name Type Priority Associated Diagnoses Orde r Schedule Drug abuse screen 77 urine Lab Routine Enter condition for order release in comments for 100 Occurrences starting 07/03/2013, 7 completed Rapid strep screen Microbiology Routine Ente r condition for order release in comments for 1 Occurrences starting 07/03/2013 Osmolality urine Lab Routine Enter co ndition for order release in comments for 100 Occurrences starting 07/03/2013, 7 completed Synthetic Cannabinoinds (K2; Spice) Lab Routine Enter condition for order release in comments for 100 Occurrences starting 07/03/2013 Ethyl Glucuronide Urine Lab Routine E nter condition for order release in comments for 100 Occurrences starting 07/03/2013 documented as of this encounter Procedures Procedure Name Priority Date/Time Associated Diagnosis Comments HIV ANTIGEN ANTIBODY COMBO Routine 08/17/2013 10:41 AM CDT Screen for STD (sexually transmitted disease) ANTI TREPONEMA Routine 08/17/2013 10:41 AM CDT Screen for STD (sexually transmitted disease) OSMOLALITY, RANDOM URINE Routine 08/15/2013 10:40 AM CDT Screen for STD (sexually transmitted disease) NEISSERIA GONORRHOEAE PCR Routine 08/15/2013 10:40 AM CDT Screen for STD (sexually transmitted disease) URINE DRUG SCREEN PANEL Routine 08/15/2013 10:40 AM CDT Screen for STD (sexually transmitted disease) CHLAMYDIA TRACHOMATIS PCR Routine 08/15/2013 10:40 AM CDT Screen for STD (sexually transmitted disease) CHLAMYDIA TRACHOMATIS PCR Routine 08/14/2013 1:53 PM CDT Screen for STD (sexually transmitted disease) OSMOLALITY, RANDOM URINE Routine 08/10/2013 1:10 PM CDT URINE DRUG SCREEN PANEL Routine 08/10/2013 1:10 PM CDT OSMOLALITY, RANDOM URINE Routine 08/01/2013 10:20 AM CDT URINE DRUG SCREEN PANEL Routine 08/01/2013 10:20 AM CDT OSMOLALITY, RANDOM URINE Routine 07/25/2013 10:40 AM CDT URINE DRUG SCREEN PANEL Routine 07/25/2013 10:40 AM CDT OSMOLALITY, RANDOM URINE Routine 07/20/2013 10:30 AM CDT URINE DRUG SCREEN PANEL Routine 07/20/2013 10:30 AM CDT OSMOLALITY, RANDOM URINE Routine 07/12/2013 11:14 AM CDT URINE DRUG SCREEN PANEL Routine 07/12/2013 11:14 AM CDT OSMOLALITY, RANDOM URINE Routine 07/04/2013 11:30 AM CDT URINE DRUG SCREEN PANEL Routine 07/04/2013 11:30 AM CDT documented in this encounter Results * Anti treponema EIA (08/17/2013 10:41 AM CDT) Treponema pallidum Antibody Negative NEG [facility] Blood specimen (specimen) 08/17/2013 10:41 AM CDT 08/17/2013 10:43 AM CDT César Steward MD LAB - BLOOD ORDERABLES [facility] * HIV Antigen Antibody Combo (08/17/2013 10:41 AM CDT) HIV Antigen Antibody Combo Nonreactive HIV-1 p24 Ag & HIV-1/HIV-2 Ab Not Detected NR [facility] Blood specimen (specimen) 08/17/2013 10:41 AM CDT 08/17/2013 10:43 AM CDT César Steward MD LAB - BLOOD ORDERABLES [facility] * (ABNORMAL) Chlamydia trachomatis PCR (08/15/2013 10:40 AM CDT) Specimen Description Urine [facility] Chlamydia Trachomatis PCR Positive Positive for C. trachomatis rRNA by angle bender mediated amplification. As is true for all non-culture methods, a positive specimen by angle bender mediated rRNA obtained from a patient after therapeutic treatment cannot be interpreted as indicating the presence of viable C. trachomatis. Critical Value/Significan t Value called to and read back by JENNIFER BANKS RN @ 1416 08/16/13 BS (A) NEG [facility] 08/15/2013 10:4 0 AM CDT 08/15/2013 10:50 AM CDT César Steward MD LAB - MICRO GENERAL ORDERABLES Performing Organization Address [facility] Co de Phone Number [facility] * Neisseria gonorrhoea PCR (08/15/2013 10:40 AM CDT) Specimen Descrip Urine [facility] N Gonorrhea PCR Negative Negative for N. gonorrhoeae rRNA by angle bender mediated amplification. A negative result by angle bender mediated amplification does not preclude the presence of N. gonorrhoeae infection because results are dependent on proper and adequate collection, absence of inhibitors, and sufficient rRNA to be detected. NEG [facility] Urine specimen (specimen) 08/15/2013 10:40 AM CDT 08/15/2013 10:50 AM CDT César Steward MD LAB - MICRO GENERAL ORDERABLES Performing Organization Address [facility] Co de Phone Number [facility] * Osmolality urine (08/15/2013 10:40 AM CDT) Urine Osmolality 537 100 - 1,200 mmol/kg [facility] Urine specimen (specimen) URINE SPECIMEN / Unknown 08/15/2013 10:40 AM CDT 08/15/2013 10:49 AM CDT César Smiley DO LAB - URINE ORDERABL ES Performing Organization Address [facility]/ZIP Co de Phone Number [facility] * Drug abuse screen 77 urine (08/15/2013 10:40 AM CDT) Amphetamine Qual Urine Negative Cutoff for a negative amphetamine is 500 ng/mL or less. NEG [facility] Barbiturates Qual Urine Negative Cutoff for a negative barbiturate is 200 ng/mL or less. NEG [facility] Benzodiazepine Qual Urine Negative Cutoff for a negative benzodiazepine is 200 ng/mL or less. NEG [facility] Cannabinoids Qual Urine Negative Cutoff for a negative cannabinoid is 50 ng/mL or less. NEG [facility] Cocaine Qual Urine Negative Cutoff for a negative cocaine is 300 ng/mL or less. Testing performed using ToxSee method. NEG [facility] Opiates Qualitative Urine Negative Cutoff for a negative opiate is 300 ng/mL or less. NEG [facility] PCP Qual Urine Negative Cutoff for a negative PCP is 25 ng/mL or less. NEG [facility] Urine specimen (specimen) URINE SPECIMEN / Unknown 08/15/2013 10:40 AM CDT 08/15/2013 10:49 AM CDT César Smiley DO LAB - URINE ORDERABL ES Performing Organization Address [facility] de Phone Number [facility] * (ABNORMAL) Chlamydia trachomatis PCR (08/14/2013 1:53 PM CDT) Specimen Description Unknown [facility] Chlamydia Trachomatis PCR Specimen not received Canceled, Test credited (A) [facility]G [facility] Urine specimen (specimen) 08/14/2013 1:53 PM CDT 08/20/2013 10:11 AM CDT César Steward MD LAB - MICRO GENERAL ORDERABLES Performing Organization Address [facility] Co de Phone Number [facility] * Osmolality urine (08/10/2013 1:10 PM CDT) Urine Osmolality 864 100 - 1,200 mmol/kg [facility] Urine specimen (specimen) URINE SPECIMEN / Unknown 08/10/2013 1:10 PM CDT 08/10/2013 1:19 PM CDT César Smiley DO LAB - URINE ORDERABL ES Performing Organization Address [facility] de Phone Number [facility] * Drug abuse screen 77 urine (08/10/2013 1:10 PM CDT) Amphetamine Qual Urine Negative Cutoff for a negative amphetamine is 500 ng/mL or less. NEG [facility] Barbiturates Qual Urine Negative Cutoff for a negative barbiturate is 200 ng/mL or less. NEG [facility] Benzodiazepine Qual Urine Negative Cutoff for a negative benzodiazepine is 200 ng/mL or less. NEG [facility] Cannabinoids Qual Urine Negative Cutoff for a negative cannabinoid is 50 ng/mL or less. NEG [facility] Cocaine Qual Urine Negative Cutoff for a negative cocaine is 300 ng/mL or less. Testing performed using ToxSee method. NEG [facility] Opiates Qualitative Urine Negative Cutoff for a negative opiate is 300 ng/mL or less. NEG [facility] PCP Qual Urine Negative Cutoff for a negative PCP is 25 ng/mL or less. NEG [facility] Urine specimen (specimen) URINE SPECIMEN / Unknown 08/10/2013 1:10 PM CDT 08/10/2013 1:19 PM CDT César Smiley DO LAB - URINE ORDERABL ES Performing Organization Address [facility] de Phone Number [facility] * Osmolality urine (08/01/2013 10:20 AM CDT) Urine Osmolality 898 100 - 1,200 mmol/kg [facility] Urine specimen (specimen) URINE SPECIMEN / Unknown 08/01/2013 10:20 AM CDT 08/01/2013 10:36 AM CDT César Smiley DO LAB - URINE ORDERABL ES Performing Organization Address [facility] Co de Phone Number [facility] * Drug abuse screen 77 urine (08/01/2013 10:20 AM CDT) Amphetamine Qual Urine Negative Cutoff for a negative amphetamine is 500 ng/mL or less. NEG [facility] Barbiturates Qual Urine Negative Cutoff for a negative barbiturate is 200 ng/mL or less. NEG [facility] Benzodiazepine Qual Urine Negative Cutoff for a negative benzodiazepine is 200 ng/mL or less. NEG [facility] Cannabinoids Qual Urine Negative Cutoff for a negative cannabinoid is 50 ng/mL or less. NEG [facility] Cocaine Qual Urine Negative Cutoff for a negative cocaine is 300 ng/mL or less. Testing performed using ToxSee method. NEG [facility] Opiates Qualitative Urine Negative Cutoff for a negative opiate is 300 ng/mL or less. NEG [facility] PCP Qual Urine Negative Cutoff for a negative PCP is 25 ng/mL or less. NEG [facility] Urine specimen (specimen) URINE SPECIMEN / Unknown 08/01/2013 10:20 AM CDT 08/01/2013 10:36 AM CDT César Smiley DO LAB - URINE ORDERABL ES [facility] * Osmolality urine (07/25/2013 10:40 AM CDT) Urine Osmolality 1,045 100 - 1,200 mmol/kg [facility] Urine specimen (specimen) URINE SPECIMEN / Unknown 07/25/2013 10:40 AM CDT 07/25/2013 11:03 AM CDT César Smiley DO LAB - URINE ORDERABL ES [facility] * Drug abuse screen 77 urine (07/25/2013 10:40 AM CDT) Amphetamine Qual Urine Negative Cutoff for a negative amphetamine is 500 ng/mL or less. NEG [facility] Barbiturates Qual Urine Negative Cutoff for a negative barbiturate is 200 ng/mL or less. NEG [facility] Benzodiazepine Qual Urine Negative Cutoff for a negative benzodiazepine is 200 ng/mL or less. NEG [facility] Cannabinoids Qual Urine Negative Cutoff for a negative cannabinoid is 50 ng/mL or less. NEG [facility] Cocaine Qual Urine Negative Cutoff for a negative cocaine is 300 ng/mL or less. Testing performed using ToxSee method. [facility]G [facility] Opiates Qualitative Urine Negative Cutoff for a negative opiate is 300 ng/mL or less. NEG [facility] PCP Qual Urine Negative Cutoff for a negative PCP is 25 ng/mL or less. NEG [facility] Urine specimen (specimen) URINE SPECIMEN / Unknown 07/25/2013 10:40 AM CDT 07/25/2013 11:03 AM CDT César Smiley DO LAB - URINE ORDERABL ES Performing Organization Address [facility] de Phone Number [facility] * Osmolality urine (07/20/2013 10:30 AM CDT) Urine Osmolality 739 100 - 1,200 mmol/kg [facility] Urine specimen (specimen) URINE SPECIMEN / Unknown 07/20/2013 10:30 AM CDT 07/20/2013 10:55 AM CDT César Smiley DO LAB - URINE ORDERABL ES Performing Organization Address [facility] de Phone Number [facility] * Drug abuse screen 77 urine (07/20/2013 10:30 AM CDT) Amphetamine Qual Urine Negative Cutoff for a negative amphetamine is 500 ng/mL or less. NEG [facility] Barbiturates Qual Urine Negative Cutoff for a negative barbiturate is 200 ng/mL or less. NEG [facility] Benzodiazepine Qual Urine Negative Cutoff for a negative benzodiazepine is 200 ng/mL or less. NEG [facility] Cannabinoids Qual Urine Negative Cutoff for a negative cannabinoid is 50 ng/mL or less. NEG [facility] Cocaine Qual Urine Negative Cutoff for a negative cocaine is 300 ng/mL or less. Testing performed using ToxSee method. NEG [facility] Opiates Qualitative Urine Negative Cutoff for a negative opiate is 300 ng/mL or less. NEG [facility] PCP Qual Urine Negative Cutoff for a negative PCP is 25 ng/mL or less. NEG [facility] Urine specimen (specimen) URINE SPECIMEN / Unknown 07/20/2013 10:30 AM CDT 07/20/2013 10:55 AM CDT César Smiley DO LAB - URINE ORDERABL ES Performing Organization Address [facility] de Phone Number [facility] * Osmolality urine (07/12/2013 11:14 AM CDT) Urine Osmolality 928 100 - 1,200 mmol/kg [facility] Urine specimen (specimen) URINE SPECIMEN / Unknown 07/12/2013 11:14 AM CDT 07/12/2013 11:35 AM CDT César Smiley DO LAB - URINE ORDERABL ES Performing Organization Address [facility] de Phone Number [facility] * Drug abuse screen 77 urine (07/12/2013 11:14 AM CDT) Amphetamine Qual Urine Negative Cutoff for a negative amphetamine is 500 ng/mL or less. NEG [facility] Barbiturates Qual Urine Negative Cutoff for a negative barbiturate is 200 ng/mL or less. NEG [facility] Benzodiazepine Qual Urine Negative Cutoff for a negative benzodiazepine is 200 ng/mL or less. NEG [facility] Cannabinoids Qual Urine Negative Cutoff for a negative cannabinoid is 50 ng/mL or less. NEG [facility] Cocaine Qual Urine Negative Cutoff for a negative cocaine is 300 ng/mL or less. Testing performed using ToxSee method. NEG [facility] Opiates Qualitative Urine Negative Cutoff for a negative opiate is 300 ng/mL or less. [facility]G [facility] PCP Qual Urine Negative Cutoff for a negative PCP is 25 ng/mL or less. [facility]G [facility] Urine specimen (specimen) URINE SPECIMEN / Unknown 07/12/2013 11:14 AM CDT 07/12/2013 11:35 AM CDT César Smiley DO LAB - URINE ORDERABL ES Performing Organization Address [facility]/State/[facility] Co de Phone Number [facility] * Osmolality urine (07/04/2013 11:30 AM CDT) Urine Osmolality 895 100 - 1,200 mmol/kg [facility] Urine specimen (specimen) URINE SPECIMEN / Unknown 07/04/2013 11:30 AM CDT 07/04/2013 11:36 AM CDT César Smiley DO LAB - URINE ORDERABL ES Performing Organization Address [facility] de Phone Number [facility] * Drug abuse screen 77 urine (07/04/2013 11:30 AM CDT) Amphetamine Qual Urine Negative Cutoff for a negative amphetamine is 500 ng/mL or less. [facility]G [facility] Barbiturates Qual Urine Negative Cutoff for a negative barbiturate is 200 ng/mL or less. [facility] Benzodiazepine Qual Urine Negative Cutoff for a negative benzodiazepine is 200 ng/mL or less. [facility] Cannabinoids Qual Urine Negative Cutoff for a negative cannabinoid is 50 ng/mL or less. [facility] Cocaine Qual Urine Negative Cutoff for a negative cocaine is 300 ng/mL or less. Testing performed using ToxSee method. [facility] Opiates Qualitative Urine Negative Cutoff for a negative opiate is 300 ng/mL or less. [facility] PCP Qual Urine Negative Cutoff for a negative PCP is 25 ng/mL or less. [facility] Urine specimen (specimen) URINE SPECIMEN / Unknown 07/04/2013 11:30 AM CDT 07/04/2013 11:36 AM CDT César Smiley DO LAB - URINE ORDERABL ES Performing Organization Address [facility] Co de Phone Number [facility] documented in this encounter Visit Diagnoses Diagnosis Screen for STD (sexually transmitted disease)- Primary Screening examination for venereal disease documented in this encounter Care Teams Gravity Meter Observer Relationship Specialty Start Date End Date Fauzia Cormier MD PCP - General Family Practice 12/02/12 02/18/16 AmeliaJuly [facility] [address] [facility] [place] [address] PCP - General Physician B2B Sales Manager 02/19/16 03/18/17 No Ref-Primary, Physician PCP - General 03/19/17 Louis Shin MD [address] [facility] [place] [address] Assigned OBGYN Provider 01/26/20 2 documented as of this encounter
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
--- OUTSIDE RECORDS SUMMARY | 2023-10-15 06:08 | XMS_ITS | Encounter Summary ---
Author Organization [place] Address [address] [place] [address]. [place] [address] Care Team Providers Care Loom Winder Tender Name Role Phone Fauzia Cormier MD Primary Care Provider [phone] Gemma Cisneros Primary Care Provider [phone] No Ref-Primary, Physician Primary Care Provider Louis Shin MD Unavailable + [phone] Encounter Details Date Type Department Care Team (Late st Contact Info) Description 08/03/2013 Telephone [facility] Mental Health & Addiction Services [address] [address] Gisele Wheeler MA [address] [address] Social History Tobacco Use Types Packs/Day Years [...] on filedocumented in this encounter Care Teams Loom Winder Tender Relationship Specialty Start Date End Date Fauzia Cormier MD PCP - General Family Practice 12/02/12 02/18/16 AmeliaJuly [facility] [address] [facility] [place] [address] PCP - General Physician Manager Cash 02/19/16 03/18/17 No Ref-Primary, Physician PCP - General 03/19/17 Louis Shin MD [address] [facility] [address] Assigned OBGYN Provider 01/26/20 4 2 documented as of this encounter
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
--- OUTSIDE RECORDS SUMMARY | 2023-10-15 06:08 | XMS_ITS | Encounter Summary ---
Author Organization [place] Address [address] [place] [address] Care Team Providers Care Rn Patient Care Name Role Phone Fauzia Cormier MD Primary Care Provider + [phone] Gemma Cisneros Primary Care Provider [phone] No Ref-Primary, Physician Primary Care Provider Louis Shin MD Unavailable + [phone] Encounter Details Date Type Department Care Team (Late st Contact Info) Description 03/16/2011 [facility] Extended Documentation [place] [address] [address] [place], [place] [phone] Social History Tobacco Use Types Packs/Day Years [...] on filedocumented in this encounter Care Teams Rn Patient Care Relationship Specialty Start Date End Date Fauzia Cormier MD PCP - General Family Practice 12/02/12 02/18/[address] [place] [address] PCP - General Physician Information Systems Operator 02/19/16 03/18/17 No Ref-Primary, Physician PCP - General 03/19/17 Louis Shin MD [address] [facility] [place] [address] Assigned OBGYN Provider 01/26/20 2 documented as of this encounter
--- OUTSIDE RECORDS SUMMARY | 2023-10-15 06:08 | XMS_ITS | Encounter Summary ---
Author Organization [place] Address [address] [place] [address]. [place] [address] Care Team Providers Care Manager Water Wastewater Name Role Phone Fauzia Cormier MD Primary Care Provider [phone] Gemma Cisneros Primary Care Provider [phone] No Ref-Primary, Physician Primary Care Provider Louis Shin MD Unavailable + [phone] Encounter Details Date Type Department Care Team (Late st Contact Info) Description 07/27/[address] [facility] Mental Health & Addiction Services [address] [address] Gisele Wheeler MA [address] [phone] Social History Tobacco Use Types Packs/Day Years [...] Telephone Encounter - Gisele Wheeler MA - 07/27/2013 2:10 PM CDT Call to pt's SW re progress in program and DC planning. SW has not heard back from mom re: scheduling appts, but has given her some referrals. Discussed after school program such as [employer] or [employer]. Also discussed possible [employer] school. Informe dSW that pt has not been attending 2 AA mtgs per week, requested assistance working with pt's mom to help pt get to mtgs. SW reported she will try to come to mtg on Wednesday. documented in this encounter Plan of Treatment Not on file documented as of this encounter Visit Diagnoses Not on filedocumented in this encounter Care Teams Manager Water Wastewater Relationship Specialty Start Date End Date Fauzia Cormier MD PCP - General Family Practice 12/02/12 02/18/[address] [place] [address] PCP - General Physician Grid Molder 02/19/16 03/18/17 No Ref-Primary, Physician PCP - General 03/19/17 Louis Shin MD [address] [place] [address] Assigned OBGYN Provider 01/26/20 2 documented as of this encounter
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
[2023-10-15 06:33] LABS: Ur HCG Qualitative* Negative (Negative)
[2023-10-15] MEDS: LACTATED RINGERS 1000 ML 1,000 ML 100 ML IV ×2 (06:40→07:42)
[2023-10-15] MEDS: SODIUM CHLORIDE 0.9 % (FLUSH) 10 ML SYRINGE IVF (06:46)
[2023-10-15] MEDS: fentaNYL 100 MCG/2 ML inj IVP (07:15)
[2023-10-15] MEDS: MIDAZOLAM HCL 1 MG/ML inj IVP (07:15)
--- NOTE | 2023-10-15 07:23 | P.ORPRC_ITS ---
Procedure Note Date of procedure: 10/15/23
--- NOTE | 2023-10-15 07:23 | W.PM.H&PU ---
History & Physical Update History & Physical Update H&P Reviewed and patient assessed: No changes noted
--- NOTE | 2023-10-15 07:23 | PM.ORPRC ---
Procedure Note Date of procedure: 10/15/23
--- NOTE | 2023-10-15 07:28 | SUR.PREOP ---
TIME?OUT:?0714 PT/Kathy DE LA PAZ RN/Paul BERMEO MDA?VERIFICATION?OF?SURGICAL?SITE,?PROCEDURE,?AND?CONSENT OBTAINED?PRIOR?TO?INVASIVE?PROCEDURE.
[2023-10-15] MEDS: CEFAZOLIN 2 GM INJ IVP (07:42)
--- NOTE | 2023-10-15 07:44 | W.PM.NB ---
Nerve Block Nerve Block Time Seen by Provider: 07:15 Date Seen: 10/15/23 Type of block requested by surgeon for post-operative analgesia: popliteal Side: right Time out performed: Yes Verification of patient name: Yes Verification of date of : Yes Site marking: site marked Name of person performing procedure: Juanito Continuous monitoring Was continuous monitoring of O2 sat, B/P, cardiac technologist, recorded every 15 minutes?: Yes Procedure Checklist: sterile prep, needles and gloves Ultrasound guided. Images saved: Yes Medications given in 5ml increments after negative aspiration: Marcaine %: 0.5 mL: 20 Needle gauge: 20 Patient tolerated procedure well: Yes Additional comments: Needle noted adjacent to nerve Block Charges Block Charge (with Pro Fee): Sciatic Nerve Use of Ultrasound Machine for Block: Yes- US Guidance/pain block
--- NOTE | 2023-10-15 07:44 | W.PM.NB ---
Nerve Block Nerve Block Time Seen by Provider: 07:15 Date Seen: 10/15/23 Type of block requested by surgeon for post-operative analgesia: femoral Side: right Time out performed: Yes Verification of patient name: Yes Verification of date of : Yes Site marking: site marked Name of person performing procedure: Juanito Continuous monitoring Was continuous monitoring of O2 sat, B/P, traffic monitor specialist, recorded every 15 minutes?: Yes Procedure Checklist: sterile prep, needles and gloves Ultrasound guided. Images saved: Yes Medications given in 5ml increments after negative aspiration: Ropivicaine %: 0.5 mL: 20 Needle gauge: 20 Decadron (mg): 10 Precedex (mcg): 25 Patient tolerated procedure well: Yes Additional comments: Needle noted adjacent to nerve Block Charges Block Charge (with Pro Fee): Femoral Nerve Use of Ultrasound Machine for Block: Yes- US Guidance/pain block
--- NOTE | 2023-10-15 09:39 | CRLHL7_ITS ---
For Patients: As a result of the Century Cures Act, medical imaging exams and procedure reports are released immediately into your electronic medical record. You may view this report before your referring provider. If you have questions, please contact your health care provider. INDICATION: Intraoperative. TECHNIQUE: Single spot image of the right knee submitted. 0.10 mGy fluoroscopy dose. FINDINGS: Single image of the right knee obtained during surgery. Dictated by Jose Ramon Ibarra MD @ 10/19/2023 8:46:35 AM (Electronically Signed)
[2023-10-15] MEDS: MEPERIDINE 25 MG/ML INJ 12.5 MG IVP (11:34)
--- NOTE | 2023-10-15 11:47 | SUR.PHASEI ---
Patient meets Anesthesia discharge criteria from PACU
--- NOTE | 2023-10-15 12:08 | W.ANESCHARGE ---
Anesthesia Charges Start Date/Time Anesthesia Start Date: 10/15/23 Anesthesia Start Time: 07:28 Stop Date/Time Anesthesia Stop Date: 10/15/23 Anesthesia Stop Time: 11:28
[2023-10-15] MEDS: OxyCODONE/APAP 5-325 TABLET PO (12:09)
== END 2023-10-15 13:17 | disposition home or self-care (01) ==
PROVIDERS: PCP Family Medicine; Visit Provider Orthopaedic Surgery
PROC: (CPT 29888; principal; 2023-10-15 07:30)
DX: S83.511A Sprain of anterior cruciate ligament of right knee, initial encounter (principal); S83.211A Bucket-handle tear of medial meniscus, current injury, right knee, initial encounter; G89.18 Other acute postprocedural pain
CPT/HCPCS: 29888; 29882; 01320; 64445; 64447; 73560; 76000; 76942; 81025; A9270; C1713; J0665; J0690; J1100; J1630; J2175; J2250; J2405; J2704; J2795; J3010; J7120; L1833

== ENCOUNTER 2023-11-19 09:00 | Outpatient (RCR) | payer BC, SELFPAY | END 2024-02-24 09:28 | disposition home or self-care (01) | PROVIDERS: PCP Family Medicine; Visit Provider Orthopaedic Surgery | DX: S83.511A Sprain of anterior cruciate ligament of right knee, initial encounter (principal); S83.211A Bucket-handle tear of medial meniscus, current injury, right knee, initial encounter; Z98.890 Other specified postprocedural states; R26.89 Other abnormalities of gait and mobility; R53.1 Weakness; Z74.09 Other reduced mobility; Z51.89 Encounter for other specified aftercare | CPT/HCPCS: 97032; 97110; 97116; 97140; 97162 ==

== ENCOUNTER 2024-07-19 12:20 | Outpatient (CLI) | payer BC, SELFPAY | END 2024-07-19 12:21 | disposition home or self-care (01) | LOC: NFLDREF 07-22 19:45 | PROVIDERS: PCP Family Medicine; Referring Provider Family Medicine; Visit Provider Physician Assistant | DX: N39.0 Urinary tract infection, site not specified (principal); B96.20 Unspecified Escherichia coli [E. coli] as the cause of diseases classified elsewhere | CPT/HCPCS: 87086 ==

== ENCOUNTER 2024-07-27 07:54 | Outpatient (CLI) | payer BC, SELFPAY | END 2024-07-27 07:55 | disposition home or self-care (01) | LOC: FRMREF 07:54 | PROVIDERS: PCP Family Medicine; Visit Provider Physician Assistant Medical | DX: N30.00 Acute cystitis without hematuria (principal) | CPT/HCPCS: 87086 ==